=== PATIENT | male | born 1945 | race African-American/Black ===

== ENCOUNTER 2022-05-29 13:31 | Inpatient (IN) | payer MEDICARE, MEDICAID ==
[~2022-05-29] VITALS: Ht 180.3 cm; Wt 66.7 kg
[2022-05-29 15:54] LABS: CHLORIDE 105 mEq/L (98-107)
[2022-05-29 16:01] LABS: BASOPHILS % 0.8 % (0.0-2.0); EOSINOPHILS % 2.1 % (0.0-5.0); HEMATOCRIT. 32.8 % (42.0-52.0); HEMOGLOBIN. 10.7 g/dL (14.0-18.0); LYMPHOCYTES % 19.5 % (20.0-50.0); MEAN CORPUSCULAR VOLUME 89.1 fL (80.0-94.0); MEAN PLATELET VOLUME 7.9 fl (7.4-10.4); MONOCYTES % 11.1 % (2.0-8.0); NEUTROPHILS % 66.5 % (40.0-76.0); PLATELET 213 x1000/uL (130-400); RED BLOOD CELL COUNT 3.68 mill/uL (4.7-6.1); RED CELL DISTRIBUTION WIDTH 15.1 % (11.6-14.6)
[2022-05-30] MEDS ORDERED: ONDANSETRON HCL 4MG/2ML INJ IV PRN (05:00)
[2022-05-30] MEDS ORDERED: ACETAMINOPHEN 325MG TABLET PO PRN (05:00)
[2022-05-30] MEDS ORDERED: HYDR-4009 PO (05:06)
[2022-05-30] MEDS ORDERED: NALOXONE HCL 0.4MG/ML VIAL IV PRN (05:15)
[2022-05-30 05:28] VITALS: BP 115/94
[2022-05-30 08:00] VITALS: BP 126/74
[2022-05-30] MEDS ORDERED: FERR324T4 PO (09:51)
[2022-05-30] MEDS ORDERED: SENN-22 PO (09:51)
[2022-05-30] MEDS ORDERED: LISI-186 PO (09:51)
[2022-05-30] MEDS ORDERED: OXYC-662 MT (09:51)
[2022-05-30] MEDS ORDERED: FAMO20TA8 PO (09:51)
[2022-05-30] MEDS ORDERED: CLOP-31 PO (09:51)
[2022-05-30 12:25] VITALS: BP_SYST 108; BP_SYST 128; BP_SYST 140; BP_DIAS 72; BP_DIAS 78
[2022-05-30 12:42] LABS: HEMATOCRIT. 31.3 % (42.0-52.0); HEMOGLOBIN. 10.4 g/dL (14.0-18.0); MEAN CORPUSCULAR HEMOGLOBIN 29.5 pg (28.0-32.0); MEAN CORPUSCULAR VOLUME 88.7 fL (80.0-94.0); MEAN PLATELET VOLUME 7.9 fl (7.4-10.4); PLATELET 217 x1000/uL (130-400); RED BLOOD CELL COUNT 3.52 mill/uL (4.7-6.1); RED CELL DISTRIBUTION WIDTH 14.8 % (11.6-14.6)
[2022-05-30 13:05] LABS: CHLORIDE 105 mEq/L (98-107)
[2022-05-30 16:05] VITALS: BP 138/66
[2022-05-30] MEDS: HYDROCODONE/ACETAMINOPHEN 10/325MG TABLET PO PRN (19:17)
[2022-05-30 20:00] VITALS: BP 112/75
[2022-05-30 23:32] LABS: CLARITY URINE CLEAR (CLEAR); COLOR URINE YELLOW (YELLOW); KETONES URINE NEGATIVE (NEGATIVE); LEUKOCYTE ESTERASE URINE NEGATIVE (NEGATIVE); NITRITE URINE NEGATIVE (NEGATIVE); OCCULT BLOOD URINE NEGATIVE (NEGATIVE); PH URINE 6.5 (4.5-8.0); PROTEIN URINE NEGATIVE (NEGATIVE); UROBILINOGEN URINE 0.2 E.U./dL (0.2-1.0)
[2022-05-30 23:46] LABS: *AMPHETAMINES SCREEN URINE NEGATIVE (NEGATIVE); *BARBITURATES SCREEN URINE NEGATIVE (NEGATIVE); *BENZODIAZEPINES SCREEN URINE NEGATIVE (NEGATIVE); *COCAINE SCREEN URINE NEGATIVE (NEGATIVE); CANNABINOID URINE SCREEN NEGATIVE (NEGATIVE); METHADONE URINE SCREEN NEGATIVE (NEGATIVE); OPIATES URINE SCREEN PRESUMTIVE POSITIVE (NEGATIVE); PHENCYCLIDINE URINE SCREEN NEGATIVE (NEGATIVE)
[2022-05-31] VITALS: BP 123/72
[2022-05-31 04:00] VITALS: BP 112/76
[2022-05-31 08:00] VITALS: BP 130/70
[2022-05-31] MEDS: HYDROCODONE/ACETAMINOPHEN 10/325MG TABLET PO PRN ×3 (09:01→21:08)
[2022-05-31 09:43] LABS: VITAMIN B12 SERUM 407 pg/mL (211-911)
[2022-05-31 12:30] VITALS: BP_SYST 112; BP_SYST 118; BP_SYST 132; BP_DIAS 54; BP_DIAS 62; BP_DIAS 66
[2022-05-31 15:42] VITALS: BP 118/66
[2022-05-31 16:46] LABS: PLATELET ESTIMATE NORMAL
[2022-05-31 20:00] VITALS: BP_SYST 100; BP_SYST 125; BP_SYST 128; BP_DIAS 62; BP_DIAS 68; BP_DIAS 75
[2022-06-01] VITALS (7 sets, daily range): BP systolic 79–138; BP diastolic 50–82
[2022-06-01] MEDS: HYDROCODONE/ACETAMINOPHEN 10/325MG TABLET PO PRN (04:10)
[2022-06-01] MEDS ORDERED: MIDODRINE HCL 5MG TABLET PO SCH (13:00)
[2022-06-01] MEDS ORDERED: MIDO10TA MT (17:17)
== END 2022-06-01 20:20 | disposition home or self-care (01) | DRG 204 ==
LOC: ER 13:52 → EDBEDREQ 18:59 → MICUSO 21:30 → EDBEDREQ 21:32 → 6WST 05-30 03:50
PROVIDERS: ADMIT Internal Medicine; ATTEND Internal Medicine
PROC: 4A0004Z Measurement of Central Nervous Electrical Activity, Open Approach (ICD-10-PCS; principal; 2022-06-01)
DX: I95.1 Orthostatic hypotension (principal); G90.8 Other disorders of autonomic nervous system; D64.9 Anemia, unspecified; M47.812 Spondylosis without myelopathy or radiculopathy, cervical region; J44.9 Chronic obstructive pulmonary disease, unspecified; D72.819 Decreased white blood cell count, unspecified; I10 Essential (primary) hypertension; Z87.891 Personal history of nicotine dependence; Z98.1 Arthrodesis status; Z86.73 Personal history of transient ischemic attack (TIA), and cerebral infarction without residual deficits
CPT/HCPCS: 36415; 71045; 72052; 72141; 80048; 80053; 80305; 81003; 82607; 84443; 84484; 85025; 93005; 93306; 93880; 99285